=== PATIENT | male | born 1985 | race African-American/Black ===

== ENCOUNTER 2024-07-09 17:05 | Emergency (ER) | payer OTHER ==
[~2024-07-09] VITALS: Ht 172.7 cm; Wt 116.6 kg
[2024-07-09 17:18] VITALS: PULSE 85; RESP 16; TEMP 97.9; O2SAT 100
[2024-07-09] MEDS ORDERED: DOXYCYCLINE HY100 MG PO (18:30)
[2024-07-09] MEDS ORDERED: ACETAMINOPHEN-1 EAC4 PO (18:30)
== END 2024-07-09 18:38 | disposition home or self-care (01) ==
LOC: ER 17:28
DX: S62.635B Displaced fracture of distal phalanx of left ring finger, initial encounter for open fracture (principal); W23.1XXA Caught, crushed, jammed, or pinched between stationary objects, initial encounter; Y92.89 Other specified places as the place of occurrence of the external cause; I10 Essential (primary) hypertension
CPT/HCPCS: 99284